=== PATIENT | female | born 1950 | race Caucasian/White ===

== ENCOUNTER 2020-06-26 17:32 | Observation (INO) | payer OTHER, SELFPAY ==
[~2020-06-26] VITALS: Ht 160 cm; Wt 67.6 kg
[2020-06-26 17:32] VITALS: BP_SYST 105
[2020-06-26] MEDS ORDERED: MORPHINE 2 MG/ML INJ. SYRINGE IVP ONE (17:45)
[2020-06-26 18:04] LABS: BASOPHILS # (AUTO) 0.1 K/uL (0.0-0.2); EOSINOPHILS # (AUTO) 0.2 K/uL (0.0-0.4); EOSINOPHILS % (AUTO) 1.9 % (0.0-4.0); LYMPHOCYTES # (AUTO) 1.8 K/uL (1.0-5.5); LYMPHOCYTES % (AUTO) 23.2 % (20.5-51.5); MEAN CORPUSCULAR HEMOGLOBIN 31 pg (27-31); MEAN CORPUSCULAR HGB CONC 33 % (32-36); MEAN CORPUSCULAR VOLUME 93 fL (79.0-98.0); MONOCYTES # (AUTO) 0.7 K/uL (0.0-1.0); MONOCYTES % (AUTO) 8.7 % (1.7-9.3); NEUTROPHILS # (AUTO) 5.1 K/uL (1.8-7.7); NEUTROPHILS % (AUTO) 65.2 % (40.0-70.0); PLATELET COUNT (AUTO) 277 K/uL (130-430); RED BLOOD CELL COUNT(AUTO) 4.52 MIL/uL (4.2-6.2); RED CELL DISTRIBUTION WIDTH 13.9 % (9.0-15.0); WHITE BLOOD COUNT (AUTO) 7.9 K/uL (4.8-10.8)
[2020-06-26 18:18] LABS: CALCIUM 9.3 mg/dL (8.4-11.0); CREATININE 1.01 mg/dL (0.55-1.30); POTASSIUM 4.1 mmol/L (3.5-5.1)
[2020-06-26 18:20] LABS: PROTHROMBIN TIME 9.8 SECS (9.5-12.5)
[2020-06-26 18:24] LABS: ALBUMIN 3.1 g/dL (3.4-4.8); TOTAL BILIRUBIN 0.2 mg/dL (0.0-1.0)
[2020-06-26] MEDS ORDERED: IOHEXOL 350 mgI/mL, 150 ML INFUS..BTL IV ONE (19:17)
[2020-06-26] MEDS ORDERED: VALS160T2 PO (19:47)
[2020-06-26] MEDS ORDERED: PITA4TAB2 PO (19:47)
[2020-06-26] MEDS ORDERED: CANA300T PO (19:47)
[2020-06-26] MEDS ORDERED: SSREG SUBCUT (19:47)
[2020-06-26] MEDS ORDERED: METH10TA80 PO (19:47)
[2020-06-26] MEDS ORDERED: ACT35 PO (19:47)
[2020-06-26] MEDS ORDERED: ESCI10TA PO (19:47)
[2020-06-26 20:27] VITALS: BP_SYST 132
[2020-06-26] MEDS ORDERED: IBUPROFEN 400 MG TABLET PO ONE (21:00)
[2020-06-26] MEDS ORDERED: ACETAMINOPHEN 325 MG TABLET PO PRN (21:15)
[2020-06-26] MEDS ORDERED: HYDROcodone/ACETAMIN 5-325 MG TAB (NORCO/ VICODIN) PO PRN (21:15)
[2020-06-26] MEDS ORDERED: ALBUTEROL SULFATE 0.083% 2.5 MG/3 ML VIAL.NEB INH PRN (21:15)
[2020-06-26] MEDS ORDERED: NALOXONE HCL 0.4 MG/ML AMP (NARCAN) IVP PRN (21:15)
[2020-06-26] MEDS ORDERED: INSULIN REGULAR, HUMAN 100 UNITS/ML, 10 ML VIAL (humuLIN R) SUBCUT PRN (21:15)
[2020-06-26] MEDS ORDERED: MORPHINE 4 MG INJ. 4 MG/ML VIAL IVP PRN (21:15)
[2020-06-26 21:35] VITALS: BP_SYST 132
[2020-06-27 04:00] VITALS: BP_SYST 117
[2020-06-27 06:51] LABS: BASOPHILS # (AUTO) 0.1 K/uL (0.0-0.2); BASOPHILS % (AUTO) 0.9 % (0.0-2.0); EOSINOPHILS # (AUTO) 0.2 K/uL (0.0-0.4); EOSINOPHILS % (AUTO) 2.8 % (0.0-4.0); HEMATOCRIT 39.7 % (36-48); HEMOGLOBIN 13.1 g/dL (12.0-16.0); LYMPHOCYTES # (AUTO) 2.1 K/uL (1.0-5.5); LYMPHOCYTES % (AUTO) 31.7 % (20.5-51.5); MEAN CORPUSCULAR HEMOGLOBIN 31 pg (27-31); MEAN CORPUSCULAR HGB CONC 33 % (32-36); MEAN CORPUSCULAR VOLUME 93 fL (79.0-98.0); MONOCYTES # (AUTO) 0.7 K/uL (0.0-1.0); MONOCYTES % (AUTO) 10.7 % (1.7-9.3); NEUTROPHILS # (AUTO) 3.5 K/uL (1.8-7.7); NEUTROPHILS % (AUTO) 53.9 % (40.0-70.0); PLATELET COUNT (AUTO) 262 K/uL (130-430); RED BLOOD CELL COUNT(AUTO) 4.27 MIL/uL (4.2-6.2); RED CELL DISTRIBUTION WIDTH 13.9 % (9.0-15.0); WHITE BLOOD COUNT (AUTO) 6.5 K/uL (4.8-10.8)
[2020-06-27 06:52] LABS: ALBUMIN 2.9 g/dL (3.4-4.8); CREATININE 0.81 mg/dL (0.55-1.30); POTASSIUM 4.3 mmol/L (3.5-5.1); THYROID STIMULATING HORMONE 0.05 uIu/mL (0.36-3.74); TOTAL BILIRUBIN 0.3 mg/dL (0.0-1.0)
[2020-06-27 08:00] VITALS: BP_SYST 123
[2020-06-27] MEDS ORDERED: ENOXAPARIN SODIUM 60 MG/0.6 ML SYRINGE SUBCUT SCH (09:00)
[2020-06-27] MEDS ORDERED: ATORVASTATIN 20 MG TABLET PO SCH (09:00)
[2020-06-27] MEDS ORDERED: LOSARTAN POTASSIUM 50 MG TABLET (COZAAR) PO SCH (09:00)
[2020-06-27] MEDS ORDERED: ESCITALOPRAM OXALATE 10 MG TABLET PO SCH (09:00)
[2020-06-27] MEDS ORDERED: methIMAzole 5 MG TABLET PO SCH (09:00)
[2020-06-27] MEDS ORDERED: ASPIRIN 81 MG TAB.CHEW PO SCH (09:00)
[2020-06-27] MEDS ORDERED: VALSARTAN 160 MG TABLET (DIOVAN) PO SCH (09:00)
[2020-06-27] MEDS ORDERED: CITALOPRAM HYDROBROMIDE 20 MG TABLET PO SCH (09:00)
[2020-06-27 12:17] VITALS: BP_SYST 109
[2020-06-27 13:54] VITALS: BP_SYST 106
[2020-06-27] MEDS ORDERED: GLUCOSE (DEXTROSE) ORAL GEL -Adults PO PRN (16:00)
[2020-06-27] MEDS ORDERED: D5W 1,000 ML IV PRN (16:00)
[2020-06-27] MEDS ORDERED: DEXTROSE 50%-WATER 50 ML DISP.SYRIN IVP PRN (16:00)
[2020-06-27 16:20] VITALS: BP_SYST 111
== END 2020-06-27 16:35 | disposition short-term general hospital (02) ==
LOC: SED 17:32 → STU 17:48 → OBSVTOIN 19:12 → INTOOBSV 19:12 → STU 19:50
PROVIDERS: ADMIT Internal Medicine Hospice and Palliative Medicine; ATTEND Internal Medicine Hospice and Palliative Medicine
DX: I21.9 Acute myocardial infarction, unspecified (principal); Z20.822 Contact with and (suspected) exposure to COVID-19; I24.9 Acute ischemic heart disease, unspecified; I10 Essential (primary) hypertension; E11.9 Type 2 diabetes mellitus without complications; E78.5 Hyperlipidemia, unspecified; E05.00 Thyrotoxicosis with diffuse goiter without thyrotoxic crisis or storm; E05.90 Thyrotoxicosis, unspecified without thyrotoxic crisis or storm; R79.89 Other specified abnormal findings of blood chemistry; F17.200 Nicotine dependence, unspecified, uncomplicated; Z90.710 Acquired absence of both cervix and uterus; Z79.899 Other long term (current) drug therapy; Z79.4 Long term (current) use of insulin
CPT/HCPCS: 36415 ×2; 71045; 71275; 80053 ×2; 80061; 82550; 82962 ×2; 83036; 83880; 84443; 84484 ×2; 85025 ×2; 85379; 85610; 85730; 87426; 93005 ×2; 93306; 93971; 96372; 96374; 99285; G0378 ×2; J1650; J2270 ×2; Q9967; 76376

== ENCOUNTER 2022-10-08 10:27 | Emergency (ER) | payer OTHER ==
[~2022-10-08] VITALS: Ht 167.6 cm; Wt 36.3 kg
[~2022-10-08 10:27] MED LIST: ACT35 PO; CANA300T PO; ESCI10TA PO; METH10TA80 PO; PITA4TAB2 PO; SSREG SUBCUT; VALS160T2 PO
[2022-10-08 11:04] VITALS: BP_SYST 142; PULSE 80; RESP 18; TEMP 97.9; O2SAT 97
[2022-10-08 13:09] VITALS: BP_SYST 142; PULSE 80; RESP 18; TEMP 97.9; O2SAT 97
== END 2022-10-08 12:56 | disposition left against medical advice (07) ==
LOC: SED 10:27
DX: R10.9 Unspecified abdominal pain (principal); Z53.21 Procedure and treatment not carried out due to patient leaving prior to being seen by health care provider
CPT/HCPCS: 99281